=== PATIENT | male | born 1935 | race Caucasian/White ===

== ENCOUNTER 2021-05-07 10:20 | Inpatient (IN) ==
[2021-05-07 12:20] VITALS: BP 165/67; PULSE 70; TEMP 97.6; O2SAT 98
[2021-05-07] MEDS ORDERED: Perflutren Lipid Microsphere 1.3 ML in 0.9 % Sodium Chloride 8.7 ML IVP PRN (12:40)
[2021-05-07 14:39] LABS: INR 1.3; Prothrombin Time 14.7 Seconds (9.4-12.1)
[2021-05-07 14:46] LABS: Lactate Dehydrogenase 154 Units/L (140-271); Total Protein 6.9 g/dL (6.4-8.9)
[2021-05-07 16:20] LABS: RBC,Pleural Fluid < 2000 RBC/mcL
[2021-05-07 16:34] LABS: Total Protein,Pleural Fluid 4.5 g/dL
[2021-05-07] MEDS ORDERED: Furosemide 20 MG/2 ML VIAL IVP ONE (16:34)
[2021-05-07 17:37] LABS: Appearance of Pleural Fl Hazy (Clear); Basophils,Pleural Fluid 0 %; Eosinophils,Pleural Fluid 0 %
[2021-05-09 21:20] LABS: Fluid Source for Cholesterol PLEURAL FLUID
[2021-05-10 01:52] LABS: Fluid Source for Albumin PLEURAL
[2021-05-10 08:40] LABS: Cholesterol,Body Fluid 82 mg/dL
== END 2021-05-07 17:22 | disposition home or self-care (01) | DRG 292 ==
LOC: CDU
PROVIDERS: ADMIT Internal Medicine; ATTEND Internal Medicine